=== PATIENT | male | born 1940 | race Asian ===

== ENCOUNTER → 2016-09-09 | Outpatient (CLI) | payer MEDICARE, OTHER ==
[2016-09-09 12:31] LABS: APPEARANCE,URINE CLOUDY (CLEAR); GLUCOSE, URINE (UA) NEGATIVE (NEGATIVE); KETONES,URINE NEGATIVE (NEGATIVE); LEUKOCYTE ESTERASE ,URINE MODERATE (NEGATIVE); OCCULT BLOOD,URINE SMALL (NEGATIVE); PH,URINE 5.5 (5.0-8.0); PROTEIN,URINE TRACE (NEGATIVE)
[2016-09-09 12:51] LABS: ADD UA MICROSCOPIC YES
[2016-09-09 12:53] LABS: RBC,URINE 0-2 /HPF (0-2); WBC,URINE 51-100 /HPF (0-5)
[2016-09-09 12:54] LABS: SQUAMOUS EPITHELIAL CELL,UR Rare /LPF (None Seen)
[2016-09-13 10:10] LABS: ALLERGEN ALTERNARIA ALTERNATA 0.14 kU/L (Class 0/I); ALLERGEN BAHIA GRASS <0.10 kU/L (Class 0); ALLERGEN BERMUDA GRASS <0.10 kU/L (Class 0); ALLERGEN BROME SMOOTH GRASS <0.10 kU/L (Class 0); ALLERGEN CAT HAIR/DANDER <0.10 kU/L (Class 0); ALLERGEN CLADOSPORIUM HERBARUM <0.10 kU/L (Class 0); ALLERGEN CODFISH IGE <0.10 kU/L (Class 0); ALLERGEN COMMON SILVER BIRCH <0.10 kU/L (Class 0); ALLERGEN D. PTERNYSSINUS 0.19 kU/L (Class 0/I); ALLERGEN D.FARINAE(MITE) 0.32 kU/L (Class I); ALLERGEN DOG HAIR/DANDER <0.10 kU/L (Class 0); ALLERGEN EGG WHITE IGE 0.82 kU/L (Class II); ALLERGEN EUCALYPTUS TREE <0.10 kU/L (Class 0); ALLERGEN LENSCALE <0.10 kU/L (Class 0); ALLERGEN MILK IGE 0.13 kU/L (Class 0/I); ALLERGEN MIMOSA/ACACIA TREE <0.10 kU/L (Class 0); ALLERGEN NETTLE <0.10 kU/L (Class 0); ALLERGEN OLIVE TREE <0.10 kU/L (Class 0); ALLERGEN PEANUT IGE <0.10 kU/L (Class 0); ALLERGEN PECAN TREE <0.10 kU/L (Class 0); ALLERGEN PENICILLIUM CHRYSOGEN 0.43 kU/L (Class I); ALLERGEN PIGWEED <0.10 kU/L (Class 0); ALLERGEN RUSSIAN THISTLE <0.10 kU/L (Class 0); ALLERGEN RYE PERENNIAL <0.10 kU/L (Class 0); ALLERGEN SOYBEAN IGE <0.10 kU/L (Class 0); ALLERGEN STEMPHYLIUM HERBARUM 0.44 kU/L (Class I); ALLERGEN WHEAT IGE <0.10 kU/L (Class 0); ALLERGEN WHITE MULBERRY TREE <0.10 kU/L (Class 0); ALLERGEN WHITE OAK TREE <0.10 kU/L (Class 0); ALLERGEN WORMWOOD/SAGEBRUSH <0.10 kU/L (Class 0)
== END | disposition home or self-care (01) ==
LOC: LABPV 09:41
PROVIDERS: ATTEND Internal Medicine Pulmonary Disease
DX: J30.9 Allergic rhinitis, unspecified (principal); R30.0 Dysuria
CPT/HCPCS: 82785; 86003; 87086

== ENCOUNTER → 2016-12-31 | Outpatient (CLI) | payer MEDICARE, OTHER ==
[2016-12-31 15:39] LABS: APPEARANCE,URINE CLEAR (CLEAR); GLUCOSE, URINE (UA) NEGATIVE (NEGATIVE); KETONES,URINE NEGATIVE (NEGATIVE); LEUKOCYTE ESTERASE ,URINE NEGATIVE (NEGATIVE); OCCULT BLOOD,URINE NEGATIVE (NEGATIVE); PH,URINE 5.5 (5.0-8.0); PROTEIN,URINE NEGATIVE (NEGATIVE)
[2016-12-31 15:43] LABS: ADD UA MICROSCOPIC NO
== END | disposition home or self-care (01) ==
LOC: LABPV 14:39
PROVIDERS: ATTEND Internal Medicine Pulmonary Disease
DX: R35.1 Nocturia (principal)
CPT/HCPCS: 87086